=== PATIENT | female | born 1950 | race Caucasian/White ===

== ENCOUNTER 2017-08-15 10:35 | Outpatient (CLI) | payer MEDICARE, OTHER ==
--- NOTE | 2017-08-15 11:37 | XRAY Report ---
SUPINE ABDOMEN: 08/15/2017 CLINICAL INDICATION: Flank pain, history of kidney stones. COMPARISON: Plain film of 12/29/2015, CT of 06/30/2015. FINDINGS: Supine views of the abdomen demonstrate a normal bowel gas pattern. There is a 7 mm calcif ication overlying the lower pole of the left renal shadow, suspicious for nephrolithiasis. No definit e ureteric calculus is identified. Postoperative changes of cholecystectomy are seen. IMPRESSION: A 7 MM HYPERDENSITY OVERLYING THE LOWER POLE OF THE LEFT KIDNEY, SUSPICIOUS FOR NEPHROLI THIASIS. NO EVIDENCE OF BOWEL OBSTRUCTION. JOB #: [id number] EXT JOB #:[id number]
== END 2017-08-15 10:36 | disposition home or self-care (01) ==
LOC: DI 10:35
PROVIDERS: ATTEND Specialist
DX: N20.0 Calculus of kidney (principal)
CPT/HCPCS: 74000

== ENCOUNTER 2018-08-02 07:48 | Outpatient (CLI) | payer MEDICARE, OTHER ==
[2018-08-02] MEDS ORDERED: IOPAMIDOL-300 100 ML VIAL ONE (07:56)
[2018-08-02] MEDS ORDERED: IOPAMIDOL-300 100 ML VIAL IVP ONE (09:40)
--- NOTE | 2018-08-02 13:54 | CT Report ---
Reason: HX RENTAL STONES ELEVATED LFTS Procedure Date: 08/02/2018 Accession Number: [id number] / [id number] Procedure: CT - Abdomen W/ CPT Code: FULL RESULT: EXAM: CT ABDOMEN EXAM DATE: 08/02/2018 09:24 AM. CLINICAL HISTORY: HX RENTAL STONES ELEVATED LFTS. COMPARISON: Abdomen pelvis CT 06/30/2015. TECHNIQUE: Routine helical CT imaging was performed through the abdomen. IV contrast: ISOVUE 300 100mL Enteric contrast: No. Reconstruction: Coronal and sagittal. In accordance with CT protocol optimization, one or more of the following dose reduction techniques were utilized for this exam: automated exposure control, adjustment of mA and/or KV based on patient size, or use of iterative reconstructive technique. FINDINGS: Lung Bases: Unremarkable. Liver: Normal contour and attenuation. No masses. No abnormal enhancement. Gallbladder/Bile Ducts: Cholecystectomy is noted. Spleen: Normal. Pancreas: Normal. Adrenal Glands: Normal. Kidneys: There is a 2 mm calcification of the superior left kidney, likely a renal stone. There are several stones in the distal left ureter and at the left UVJ with the largest measuring approximately 8 mm (Steinstrasse appearance). No hydronephrosis or perinephric stranding. Peritoneal Cavity/Bowel: No free fluid, free air or adenopathy. No masses or acute inflammatory process. The appendix is well visualized and normal. Vasculature: No aneurysms or other significant abnormality. Bones: No bone lesions. IMPRESSION: There are multiple stones in the distal left ureter and at the left UVJ without high-grade obstruction. Punctate left renal stone. Normal contour and attenuation of the liver without hepatoma. [facility]
--- NOTE | 2018-08-02 13:58 | CT Report ---
Reason: HX RENTAL STONES ELEVATED LFTS Procedure Date: 08/02/2018 Accession Number: [id number] / [id number] Procedure: CT - Abdomen/Pelvis W/O CPT Code: FULL RESULT: EXAM: CT ABDOMEN AND PELVIS EXAM DATE: 08/02/2018 09:24 AM. CLINICAL HISTORY: HX RENTAL STONES ELEVATED LFTS. COMPARISONS: None. TECHNIQUE: Routine helical CT imaging was performed through the abdomen and pelvis. IV contrast: No. Enteric contrast: No. Reconstructions: Coronal and sagittal. In accordance with CT protocol optimization, one or more of the following dose reduction techniques were utilized for this exam: automated exposure control, adjustment of mA and/or KV based on patient size, or use of iterative reconstructive technique. FINDINGS: Lung Bases: Unremarkable. Liver: Normal contour and attenuation. No masses. Gallbladder/Bile Ducts: Cholecystectomy is noted. Spleen: Normal. Pancreas: Normal. Adrenal Glands: Normal. Kidneys: Punctate stone in the superior left kidney. Multiple stones in the distal left ureter and at the left UVJ measure up to 8 mm (steinstrasse appearance). No hydronephrosis or perinephric stranding. Peritoneal Cavity/Bowel: No free fluid, free air or adenopathy. No masses or acute inflammatory process. The appendix is well visualized and normal. Pelvic Organs: Normal. The bladder and visualized pelvic organs appear within normal limits. Vasculature: No aneurysms or other significant abnormality. Bones: No bone lesions. IMPRESSION: Multiple stones in the distal left ureter and at the left UVJ without high-grade obstruction. Punctate left renal stone. [facility]
== END 2018-08-02 07:49 | disposition home or self-care (01) ==
LOC: DI 07:48
PROVIDERS: ATTEND Physician Assistant
DX: N20.1 Calculus of ureter (principal)
CPT/HCPCS: 74160; 74176; Q9967